=== PATIENT | female | born 1965 | race Caucasian/White ===

== ENCOUNTER 2018-10-28 09:39 | Outpatient (REF) | payer OTHER, SELFPAY ==
--- NOTE | 2018-10-28 09:05 | PAPFT_PTH ---
PATIENT: Leandra Anna LOC: N U#:[id number] AGE/SX: 53/F ROOM: RE10/28/[address]: NORM Mcfarlane : 1965 BED: DIS: 10/28/2018 SPEC #: [id number] RECD: 10/28/18 13:00 STATUS: SAMMIE KADIE #: [id number] MELANIA: 10/28/18 09:[address]: Jessi Waldron DEPT: [facility] Cytology RECD BY: Irma Du ENTERED: 10/28/18 13:00 SP TYPE: PAPFT OTHR DR: Mina Anderson Tissues: 1 - CX/ENDOCX FOR PAP SMEARS Procedures: PAP THIN PREP/[facility] Screening HPV DNA PROBE Comments: [id number]
== END 2018-10-28 09:59 ==
LOC: LBN 09:39
PROVIDERS: PCP Neuromusculoskeletal Medicine & OMM; Visit Provider Nurse Practitioner Family
DX: Z12.4 Encounter for screening for malignant neoplasm of cervix (principal); Z11.51 Encounter for screening for human papillomavirus (HPV)
CPT/HCPCS: 88142; 87624

== ENCOUNTER 2018-11-11 00:24 | Outpatient (CLI) | payer OTHER, SELFPAY ==
--- NOTE | 2018-11-11 09:45 | DI.MAMMO_ITS ---
SYMPTOMS/DIAGNOSIS: SCREENING, Z12.31 MAMMOGRAM: Mammograms were interpreted according to the usual protocol including computer analysis with CAD system, tomosynthesis and C view imaging. The breasts are heterogeneously dense. No dominant mass or clumped microcalcification is identified in either breast. The current examination is compared with previous examinations including September 2017 and there has been no gross interval change in appearance in comparison with the previous studies. CONCLUSION: No specific evidence of malignancy at this time. Routine screening examinations are suggested at yearly intervals in this age group according to the ACS/ACR guidelines. Category I. Breast density Category C. MQSA ASSESSMENT OF FINDINGS: Negative. Category 1. Patient will receive a letter notifying them of these results. Bi-RADS category C. The breasts are heterogeneously dense, which may obscure small masses.
== END 2018-11-11 00:44 ==
PROVIDERS: PCP Neuromusculoskeletal Medicine & OMM; Visit Provider Nurse Practitioner Family
DX: Z12.31 Encounter for screening mammogram for malignant neoplasm of breast (principal)
CPT/HCPCS: 77063; 77067

== ENCOUNTER 2020-01-12 01:29 | Outpatient (CLI) | payer OTHER, SELFPAY ==
--- NOTE | 2020-01-12 12:30 | DI.MAMMO_ITS ---
EXAM: MAMMO SCREENING CLINICAL HISTORY: screening,Z12.39 TECHNIQUE: Mammograms were interpreted according to the usual protocol including computer analysis w [employer] CAD system, tomosynthesis and C-view imaging. COMPARISON: FINDINGS: The breasts are of moderate density with heterogeneous distribution of fibroglandular tissue. There are multiple focal areas of asymmetric density seen bilaterally. No dominant mass or clumped microca lcification. There is question of interval change in an area of focal asymmetric density projected i n the central medial portion of the right breast on CC view in comparison with previous examinations including October 2018. Additional mammographic views of this area are requested to include CC spot comp ression view of right breast. No other significant change seen. IMPRESSION: Additional mammographic views of the right breast requested as described above. Right breast ultraso und may be indicated as well depending on the results of the additional mammographic views. BI-RADS Category 0 - Assessment Incomplete: Need additional imaging evaluation Breast Density - Category B - Scattered areas of fibroglandular density
== END 2020-01-12 01:49 ==
PROVIDERS: PCP Neuromusculoskeletal Medicine & OMM; Visit Provider Nurse Practitioner Family
DX: Z12.31 Encounter for screening mammogram for malignant neoplasm of breast (principal); R92.8 Other abnormal and inconclusive findings on diagnostic imaging of breast
CPT/HCPCS: 77063; 77067

== ENCOUNTER 2020-01-18 02:24 | Outpatient (CLI) | payer OTHER, SELFPAY ==
--- NOTE | 2020-01-18 | DI.US_ITS ---
EXAM: MG MAMMO SCREEN CALL BACK UNI CLINICAL HISTORY: F/U MAMMO, ? CHANGE IN ASYMMETRIC DENSITY RT. TECHNIQUE: Craniocaudal and mediolateral oblique Full Field Digital Mammography views of the right b reast with Computer Aided Diagnosis followed by Tomosynthesis and right breast ultrasound. COMPARISON: US US BREAST RT LIMITED from 01/18/2020 FINDINGS: Mammography/Tomosynthesis: Masses/Architectural Distortion: Asymmetric breast density in the retroareolar region of the right br east appears stable. The area of concern in the medial right breast on the craniocaudad view shows n o persistent discrete mass. Microcalcifictions: No suspicious pleomorphic-type are seen. Skin Thickening/Nipple Retraction: None. Right breast US: Echotexture: Normal appearance of the glandular tissue. Shadowing: No suspicious foci. Cyst: There is a 0.8 x 0.5 x 0.7 cm simple cyst at the 12 o'clock position of the right breast 3 cm f rom the nipple. There is a 0.5 x 0.3 x 0.4 cm well-circumscribed round hypoechoic avascular lesion a t the 12 o'clock position 3 cm from the nipple. Solid lesions: None seen. Ductal dilation: None. IMPRESSION: 1. No definite evidence of malignancy is noted. 2. A six-month follow-up right mammogram and ultrasound is requested for re-evaluation. 3. The findings were discussed with the patient on the date of the examination. BI-RADS Cat 3 - 6 month - Probably Benign Finding: Recommend follow-up mammography in 6 months Breast Density - Category B - Scattered areas of fibroglandular density A negative radiographic report should not delay biopsy if a dominant or clinically suspicious mass is present. Up to ten percent of cancers are not identified on mammography. A negative report may reinforce clinical impression. Adenosis and dense breasts may obscure an underlying neoplasm. False positive reports average 6 to 10%. Patient will receive a letter notifying them of these results.
== END 2020-01-18 02:44 ==
PROVIDERS: PCP Neuromusculoskeletal Medicine & OMM; Visit Provider Nurse Practitioner Family
DX: Z12.31 Encounter for screening mammogram for malignant neoplasm of breast (principal); R92.8 Other abnormal and inconclusive findings on diagnostic imaging of breast; R92.2 Inconclusive mammogram
CPT/HCPCS: 76642; 77063; 77067

== ENCOUNTER 2021-12-31 11:08 | Outpatient (REF) | payer OTHER, SELFPAY ==
--- NOTE | 2021-12-31 10:45 | PAPFT_PTH ---
PATIENT: Leandra Anna LOC: [facility] U#:[id number] AGE/SX: 56/F ROOM: RE12/31/[address]: NORM Mcfarlane : 1965 BED: DIS: 12/31/2021 SPEC #: [id number] RECD: 12/31/21 12:03 STATUS: SAMMIE REQ #: [id number] MELANIA: 12/31/21 10:[address]: Jessi Waldron DEPT: [facility] Cytology RECD BY: Dolores De Souza ENTERED: 12/31/21 12:04 SP TYPE: PAPFT OTHR DR: Mina Anderson Tissues: 1 - CX/ENDOCX FOR PAP SMEARS Procedures: PAP THIN PREP/[facility] Screening HPV DNA PROBE Comments: [id number]
== END 2021-12-31 11:09 | disposition home or self-care (01) ==
LOC: LBN 11:08
PROVIDERS: PCP Neuromusculoskeletal Medicine & OMM; Visit Provider Nurse Practitioner Family
DX: Z12.4 Encounter for screening for malignant neoplasm of cervix (principal); Z11.51 Encounter for screening for human papillomavirus (HPV)
CPT/HCPCS: 88142; 87624

== ENCOUNTER → 2023-10-12 04:54 | Outpatient (CLI) | payer MEDICAID, SELFPAY ==
--- NOTE | 2023-10-12 07:30 | DI.RAD_ITS ---
Exam(s) XR FOOT LT COMPLETE EXAM: XR FOOT LT COMPLETE CLINICAL HISTORY: Left foot pain,M79.672. TECHNIQUE: 2D digital imaging was performed. Three views. COMPARISON: No exams were available for comparison FINDINGS: BONES: No acute fracture is present. No bony destructive lesion is seen. Small heel spurs. Ossicle a djacent to cuboid. Spurring at the base of the 5th metatarsal. JOINTS: No dislocation present. Minimal degenerative changes 1st MTP joint. Plantar arch is maintain ed. SOFT TISSUE: Normal. IMPRESSION: Small heel spurs. DATA REPOSITORY: RADIATION DOSE DELIVERED:
== END ==
PROVIDERS: PCP Neuromusculoskeletal Medicine & OMM; Visit Provider Podiatrist
DX: M79.672 Pain in left foot (principal)
CPT/HCPCS: 73630

== ENCOUNTER → 2023-11-02 09:27 | Outpatient (CLI) | payer MEDICAID, SELFPAY ==
--- NOTE | 2023-11-02 10:50 | DI.RAD_ITS ---
Exam(s) XR FOOT LT COMPLETE EXAM: XR FOOT LT COMPLETE CLINICAL HISTORY: M79.675 M79.672 Left toe pain, pain left foot. TECHNIQUE: 2D digital imaging was performed of the left foot. Three images were obtained. AP, obli que and lateral views were obtained. COMPARISON: CR XR FOOT LT COMPLETE from 10/12/2023 FINDINGS: BONES: No acute fracture is present. No bony destructive lesion is seen. There is a small enthesophyt e at the posterior calcaneus. There is a small spur at the plantar surface of the calcaneus. JOINTS: No dislocation present. The joint spaces are well maintained. SOFT TISSUE: Normal. IMPRESSION: No acute fracture or dislocation. DATA REPOSITORY: RADIATION DOSE DELIVERED:
== END ==
PROVIDERS: PCP Neuromusculoskeletal Medicine & OMM; Visit Provider Podiatrist
DX: M79.675 Pain in left toe(s) (principal); M79.672 Pain in left foot; M77.32 Calcaneal spur, left foot
CPT/HCPCS: 73630

== ENCOUNTER → 2023-11-16 04:31 | Outpatient (CLI) | payer MEDICAID, SELFPAY ==
--- NOTE | 2023-11-16 07:00 | DI.RAD_ITS ---
Exam(s) XR FOOT LT COMPLETE EXAM: XR FOOT LT COMPLETE CLINICAL HISTORY: Nondisplaced fracture navicular,contusion, pain, s92.255a,s90.32xa,m79.672. TECHNIQUE: 2D digital imaging was performed. Three views. COMPARISON: CR XR FOOT LT COMPLETE from 10/12/2023 CR XR FOOT LT COMPLETE from 11/02/2023 FINDINGS: BONES: No navicular fracture is visible. No bony destructive lesion is seen. Small heel spurs. Sp urring at base of 5th metatarsal. No JOINTS: No dislocation present. SOFT TISSUE: Normal. IMPRESSION: No acute abnormality. No navicular fracture is visible. DATA REPOSITORY: RADIATION DOSE DELIVERED:
== END ==
PROVIDERS: PCP Neuromusculoskeletal Medicine & OMM; Visit Provider Podiatrist
DX: S92.255A Nondisplaced fracture of navicular [scaphoid] of left foot, initial encounter for closed fracture (principal); S90.32XA Contusion of left foot, initial encounter; X58.XXXA Exposure to other specified factors, initial encounter
CPT/HCPCS: 73630

== ENCOUNTER 2025-02-14 13:53 | Outpatient (REF) | payer MEDICAID, SELFPAY ==
--- NOTE | 2025-02-14 13:00 | PAPFT_PTH ---
PATIENT: Leandra Anna LOC: [facility] U#:[id number] AGE/SX: 59/F ROOM: RE02/14/[address]: Janelle Kidd NP : 1965 BED: DIS: 02/14/2025 SPEC #: [id number] RECD: 02/14/25 18:12 STATUS: SAMMIE REQ #: [id number] MELANIA: 02/14/25 13:[address]: Bernabe LIPSCOMB,Janelle DEPT: [facility] Cytology RECD BY: Irma Du ENTERED: 02/14/25 18:12 SP TYPE: PAPFT OTHR DR: Mina Anderson Tissues: 1 - CX/ENDOCX FOR PAP SMEARS Procedures: PAP THIN PREP/[facility] Screening HPV DNA PROBE Comments: [id number] (HPV 16 & 18/45)
== END 2025-02-14 13:54 | disposition home or self-care (01) ==
LOC: LBN 13:53
PROVIDERS: PCP Neuromusculoskeletal Medicine & OMM; Visit Provider Nurse Practitioner Women's Health
DX: Z12.4 Encounter for screening for malignant neoplasm of cervix (principal)
CPT/HCPCS: 88142; 87624